=== PATIENT | female | born 1990 | race Caucasian/White ===

== ENCOUNTER 2016-12-15 11:29 | Emergency (ER) | payer OTHER ==
--- NOTE | 2016-12-15 13:30 | DIAGNOSTIC IMAGING REPORT ---
PROCEDURE: XR CHEST 2 VIEW INDICATION: SHORTNESS OF BREATH TECHNIQUE: PA and lateral views. COMPARISON: None. FINDINGS: Lungs are clear. Heart and mediastinum are normal. Thorax is normal. IMPRESSION: 1. Negative chest.
--- NOTE | 2016-12-15 13:32 | ED CLINICAL REPORT ---
Clinical Report - Physicians/Mid Levels [facility] [address] [place] [address] 12/15/2016 11:30 Patient: YASMANY RADER Time Seen: 11:58. Arrived- By private vehicle. Historian- patient. Note: . HISTORY OF PRESENT ILLNESS Chief Complaint: NASAL CONGESTION, NAUSEA, VOMITING and DIZZINESS. At its maximum, severity described as moderate. When seen in the E.D., severity described as moderate. Modifying factors- worsened by walking and food. (zofran helps - was able to keep down food yesterday for 7 hours after taking zofran - she did not take her zofran today). Not relieved by anything. This started several days ago and is still present. It was gradual in onset and has been waxing/waning. No headache or muscle aches. She has had fatigue. Similar symptoms previously: Recent medical care: The patient was seen recently at another facility in a clinic. Seen for similar symptoms. Evaluation/treatment: labs. Diagnosis: (Influenza). ( Had +flu screen at [facility]). REVIEW OF SYSTEMS Last normal menstrual period- 11 weeks and Currently : EDC: Jul 07 2017. She has had fever (recently - gone today). She has had sinus drainage, nasal congestion, nausea and vomiting. No cough, difficulty breathing, chest pain, abdominal pain or diarrhea. No black stools, bloody stools, difficulty with urination, skin rash or calf pain. No headache or blackouts. All systems otherwise negative, except as recorded above. PAST HISTORY Heart disease. PCP: Esteban; Dr Barksdale/ Teresa OB: Hank PROBLEMS: Drug Rash. Hives. Ureterolithiasis. UTI - Urinary Tract Infection. Substance Abuse. Nausea. Cough. Bronchitis. Vaginitis. Viral Disease. Medications: Tamiflu Oral. Zofran Oral. Allergies: Sulfa Antibiotics. SOCIAL HISTORY Smoker- current status unknown. History of drug use: marijuana. ADDITIONAL NOTES The nursing notes have been reviewed. PHYSICAL EXAM Vital Signs: 12/15/2016 11:42 BP: 128/90. HR: 112. RR: 24. O2 saturation: 98%. Temp: 98.7 F. Appearance: Alert. Patient in mild distress. Eyes: Eyes normal inspection. No scleral icterus or pale conjunctivae. ENT: Pharynx normal. No pharyngeal erythema or tonsillar exudate. The mucous membranes are not dry. Neck: Normal inspection. Neck supple. CVS: Tachycardia. Heart sounds normal. Pulses normal. Respiratory: No respiratory distress. Breath sounds normal. Abdomen: No visible injury. Soft and nontender. No mass. Back: Normal inspection. No CVA tenderness. Skin: Skin warm and dry. Normal skin color. Normal skin turgor. Extremities: Extremities exhibit normal ROM. No lower extremity edema. Neuro: Oriented X 3. No motor deficit. No sensory deficit. LABS, X-RAYS, AND EKG Laboratory Tests: UA-Culture if indicated: (JONATHON: 12/15/2016 12:40) ( [facility] [place] 12/15/2016 13:09) Final results Test Result Flag Units (Reference) URINE COLOR YELLOW URINE APPEARANCE CLEAR URINE GLUCOSE NEGATIVE (NEGATIVE) URINE BILIRUBIN NEGATIVE (NEGATIVE) URINE KETONE 3+ (NEGATIVE) URINE SPECIFIC GRAVITY 1.020 (1.010-1.030) URINE PH 6.5 (5.0-8.0) URINE PROTEIN TRACE (NEGATIVE) URINE UROBILINOGEN 1.0 EU/dL (0.2-1.0) URINE NITRITE NEGATIVE (NEGATIVE) URINE BLOOD NEGATIVE (NEGATIVE) URINE LEUK ESTERASE NEGATIVE (NEGATIVE) URINE RBC 0-1 rbc/hpf (0-1) URINE WBC 0-1 wbc/hpf (0-1) URINE EPITHELIAL CELLS 1-3 EPI/hpf (0-5) URINE BACTERIA FEW (1+) (NONE SEEN) URINE COMMENT CULT NOT INDICATED 3+ MUCOUSURINE CULTURES ARE SET-UP BASED ON THE FOLLOWING CRITERIA:POSITIVE NITRITEPOSITIVE LEUKOCYTE ESTERASEGREATER THAN 10 WHITE BLOOD CELLSMODERATE (2+) OR GREATER BACTERIA CBC w Diff: (JONATHON: 12/15/2016 11:45) ( [facility] [place] 12/15/2016 12:17) Final results Test Result Flag Units (Reference) WHITE BLOOD COUNT 10.0 K/uL (4.5-11.5) RED BLOOD COUNT 4.74 M/uL (4.00-5.20) HEMOGLOBIN 14.3 gm/dL (12.0-16.0) HEMATOCRIT 42.6 % (36.0-46.0) MEAN CELL VOLUME 90 fL (80-100) MEAN CORPUSCULAR HGB 30 pg (26-34) MEAN CORPUSCULAR HGB CONC 34 g/dL (31-37) RED CELL DISTRIBUTION WIDTH 12.1 % (11.6-14.8) PLATELET COUNT 272 K/uL (150-400) LYMPH % 11.5 L % (25-40) MONO % 3.3 % (3-14) GRANULOCYTE % 85.2 (53-90) PT with INR: (JONATHON: 12/15/2016 11:45) ( MsgRcvd 12/15/2016 12:18) Final results Test Result Flag Units (Reference) INR 1.0 (0.8-1.2) Low Intensity Therapy: INR 1.5-2.0 PT range 18.5-23.1Mod.Intensity Therapy: INR 2.0-3.0 PT range 23.1-31.5High Intensity Therapy: INR 2.5-3.5 PT range 27.4-35.5High Intensity Therapy 2: INR 3.0-4.0 PT range 31.5-39.3 D-DIMER QUANTITATIVE 0.52 ug/mLFEU (0.27-0.52) The primary value of this quantitative assay relates toits negative predictive value (i.e. exclusion) of pulmonaryembolism/deep vein thrombosis/DIC.Elevated levels of d-dimer may also occur with:, age, cancer, inflammation, liver disease,post-op, infection, hematoma, coronary disease, peripheralarteriopathy, bleeding disorders and thrombolytic treatment.Results should be correlated with other clinical andradiological data.Testing Methodology: Latex Immunoassay [id number]: (JONATHON: 12/15/2016 11:45) ( MsgRcvd 12/15/2016 12:49) Final results Test Result Flag Units (Reference) PROCALCITONIN <0.5 ng/mL (0-0.5) PCT Concentration: Interpretation : Risk/option for action PCT <=0.5 ng/mL : Systemic : Low risk forinfection(sepsis): progression to severeis not likely. : systemic infection.Local bacterial : CAUTION-PCT levelsinfection is : below 0.5 ng/mL do notpossible. : exclude an infection,because localizedinfections (withoutsystemic signs) may beassociated with suchlow levels. If PCT ismeasured very earlyafter a bacterialchallenge (usually <6hours), these valuesmay still be low. Inthis case PCT shouldbe re-assessed 6-24hours later. PCT >0.5 and : Systemic infection: Moderate risk for<= 2 ng/mL : (sepsis) is : progression to severepossible, but : systemic infection.other conditions : The patient should beare known to : closely monitoredelevate PCT. : both clinically andby re-assessing PCTwithin 6-24 hours. PCT > 2 ng/mL : Systemic infection: High risk for(sepsis) is likely: progression to severeunless other : systemic infection.causes are known. : PCT >= 10 ng/mL : Important systemic: High likelihood ofinflammatory : severe sepsis orresponse, almost : septic shock.exclusively due to:severe bacterial :sepsis or septic :shock. : BNP: (JONATHON: 12/15/2016 11:45) ( ArgRcvd 12/15/2016 12:39) Final results Test Result Flag Units (Reference) B-TYPE NATRIURETIC PEPTIDE 15.6 pg/ml (5-100) CHEM 13 PANEL: (JONATHON: 12/15/2016 11:45) ( MsgRcvd 12/15/2016 12:29) IP Test Result Flag Units (Reference) GLUCOSE 91 mg/dL (70-110) BUN 9 mg/dL (7-18) CREATININE 0.6 mg/dL (0.6-1.3) Estimated GFR >60 mL/min Estimated GFR- >60 mL/min Note: Persistent reduction over 3 months in eGFR<60 mL/min/1.73 m2 defines CKD. Patients with eGFR values>=60 mL/min/1.73 m2 may also have CKD if evidence ofpersistent proteinuria. Additional information may be foundat www.kidney.org. SODIUM 137 mmol/L (136-145) POTASSIUM 3.6 mmol/L (3.5-5.1) CHLORIDE 101 mmol/L (98-107) CARBON DIOXIDE 22 mmol/L (21-32) CALCIUM 9.2 mg/dL (8.5-10.1) TOTAL PROTEIN 8.0 g/dL (6.4-8.2) ALBUMIN 3.7 g/dL (3.3-5.0) BILIRUBIN, TOTAL 0.3 mg/dL (0.0-1.0) ALKALINE PHOSPHATASE 96 U/L (46-116) AST (SGOT) 19 U/L (15-37) ALT (SGPT) 29 U/L (12-78) MAGNESIUM 1.8 mg/dL (1.8-2.4) AMYLASE 50 U/L (25-115) CPK 29 U/L (24-260) TROPONIN I <0.05 ng/mL (0.00-1.5) TROPONIN REFERENCE RANGE:<0.1 NEGATIVE0.1-1.5 INDETERMINANT>1.5 POSITIVE . Pulse Oximetry: 12/15/2016 11:42 O2 saturation: 98%. (FIO2 - room air). Interpretation: normal. PROGRESS AND PROCEDURES Course of Care: Normal Saline 1 liter IVPB given. Zofran 4 mg IVP given. Reglan 10 mg IVP given. Patient is stable. Physical exam findings are improved. Symptoms much better. 12/15/2016 13:48 BP: 122/64. HR: 93. RR: 16. O2 saturation: 99%. Patient/family counseled. Old ED records reviewed. Disposition: Discharged. Condition: stable and improved. CLINICAL IMPRESSION Second trimester . Influenza with upper respiratory infection and bronchitis. INSTRUCTIONS Do not work for three days. Avoid alcohol and NSAIDS. Examples of NSAIDS include aspirin, ibuprofen (Advil) and naproxen (Aleve). Avoid fatty, fried/greasy, lactose-containing (such as milk, cheese and ice cream), salty and spicy foods. Drink plenty of fluids. Warnings: Further evaluation is necessary in order to recheck abnormal lab, obtain test results, conduct further tests and assess the possibility of serious illness. It is very important to follow up with a physician. GENERAL WARNINGS: Return or contact your physician immediately if your condition worsens or changes unexpectedly, if not improving as expected, or if other problems arise. Your Current Medications: CONTINUE TAKING THE FOLLOWING MEDICATIONS: Tamiflu Oral. Zofran Oral. Prescription Medications: Zofran (orally disintegrating tablets) 4 mg: take 1-2 orally every 8 hours as needed for nausea and vomiting. Dispense fifteen (15). No refill. Substitution is permissible. Follow-up with: Lilian Mckinney DO, child care associate, , [facility], [address] [place] [address], [phone] Follow up today. Reason for referral: AN APPOINTMENT HAS BEEN MADE FOR YOU FOR 3:45 PM TODAY. (Electronically signed by Bar Maza DO 12/16/2016 12:30)
--- NOTE | 2016-12-15 13:32 | ED NURSING NOTES ---
Clinical Report - Nurses [facility] [address] [place] [address] 12/15/2016 11:30 Patient: YASMANY RADER TRIAGE Triage time 1135. Acuity: LEVEL 3. Chief Complaint: "FLU". Alert. No acute distress. --11:46 Roseann Malagon 11:42 12/15/16. BP: 128/90. HR: 112. RR: 24. O2 saturation: 98%. Temp: 98.7 F. Pain level now 0/10. --11:46 Roseann Malagon. Weight: 62.5 kg. Height/Length: 61 inches. BMI: 26. --11:42 Roseann Malagon. Medications Zofran Oral. --11:43 Roseann Malagon. Allergies Sulfa Antibiotics. --11:43 Roseann Malagon. History Arrived by private vehicle. Historian: patient. Accompanied by friend. ( Pt dx with flu, + swab, sts she cannot keep down the tamiflu and still has vomiting and weakness, pt is not aggressively taking her rx for nausea meds x 2). PAST MEDICAL HX: Currently : EDC: Jul 07 2017. SOCIAL HX: Former smoker, end date 09/2016. History of drug use: marijuana. --11:46 Roseann Malagon. PROBLEMS: Drug Rash. Hives. Ureterolithiasis. UTI - Urinary Tract Infection. Substance Abuse. Nausea. Cough. Bronchitis. Vaginitis. Viral Disease. --11:44 Roseann Malagon. Interventions ID band on patient. To treatment room. --11:46 Roseann Malagon. PHYSICAL ASSESSMENT Ambulatory to room. Patient gowned. GENERAL / NEURO / PSYCH: Alert. Oriented X 4. Appears anxious. HEENT: Pupils equal, round and reactive to light. Mucous membranes are pink. RESPIRATORY: Respirations not labored. Chest nontender. Breath sounds within normal limits. CVS: Normal sinus rhythm noted. Capillary refill less than 2 seconds. Pulses within normal limits. GI / : The patient has had nausea. Emesis noted. Abdomen soft and nontender and normal bowel sounds. SKIN: Skin is warm and dry. --11:46 Roseann Malagon. NURSING PROGRESS NOTES 11:43 12/15/2016 Site #1 started via IV in the right antecubital space with an 18g angiocath, with aseptic technique and good blood return; one attempt. Blood drawn: rainbow set. Labeled in the presence of the patient and sent to the lab. Saline lock flushed with 10 mL saline. --11:48 Valeria Billingsley R.N. 11:48 12/15/16. The plan of care for this patient has been created. Patient gowned. Head of bed elevated. Call light placed in reach. Bed placed in lowest position. Brakes of bed on. --11:49 Valeria Billingsley R.N. Patient returned from radiology by wheelchair with tech. --12:32 Valeria Billingsley R.N. 12:39 12/15/2016 Started bag #1 1000 mL IV Fluids IV NS (Saline); bolus of 1000 mL wide open via site #1 --12:39 Roseann Malagon 12:39 12/15/2016 Zofran (Ondansetron HCl) IVP 4 mg given over 1 minute(s) via site #1. Allergies verified and confirmed 5 rights. IV patency established. IV site checked: no pain, redness, or swelling. IV flushed thoroughly pre- and post-medication administration. IVP given by RN. --12:39 Roseann Malagon 12:40 12/15/2016 Reglan (Metoclopramide HCl) IVP 10 mg given over 2 minute(s) via site #1. Allergies verified and confirmed 5 rights. IV patency established. IV site checked: no pain, redness, or swelling. IV flushed thoroughly pre- and post-medication administration. IVP given by RN. --12:40 Roseann Malagon Reassessment after medication administered. She is calm and resting quietly and has had no adverse reaction. Overall patient status is improved- she states feels better. --13:47 Roseann Malagon 13:47 12/15/2016 Site #1 removed upon discharge. Pressure dressing applied. --13:47 Roseann Malagon 13:47 12/15/2016 IV Fluids IV NS Discontinued: bag #1 infused upon discharge. Total amount infused: 1000 mL. --13:47 Roseann Malagon. DISPOSITION / DISCHARGE Departure time: 1345. Condition at departure: improved and stable. No learning barriers present. Discharge instructions provided and reviewed with the patient and spouse. Reviewed medication(s). Patient and spouse verbalized understanding. Written instructions provided in Taiwanese. The patient was discharged by the physician. She was discharged home and accompanied by spouse. She left the Emergency Department ambulatory and via private vehicle. Spouse driving. --13:48 Roseann Malagon 13:48 12/15/16. BP: 122/64. HR: 93. RR: 16. O2 saturation: 99%. Pain level now 0/10. --13:48 Roseann Malagon. Locked/Released at 12/15/2016 13:49 by Roseann Malagon,
--- NOTE | 2016-12-15 13:32 | ED CLINICAL REPORT ---
Clinical Report - Physicians/Mid Levels [facility] [address] [place] [address] 12/15/2016 11:30 Patient: YASMANY RADER Time Seen: 11:58. Arrived- By private vehicle. Historian- patient. Note: . HISTORY OF PRESENT ILLNESS Chief Complaint: NASAL CONGESTION, NAUSEA, VOMITING and DIZZINESS. At its maximum, severity described as moderate. When seen in the E.D., severity described as moderate. Modifying factors- worsened by walking and food. (zofran helps - was able to keep down food yesterday for 7 hours after taking zofran - she did not take her zofran today). Not relieved by anything. This started several days ago and is still present. It was gradual in onset and has been waxing/waning. No headache or muscle aches. She has had fatigue. Similar symptoms previously: Recent medical care: The patient was seen recently at another facility in a clinic. Seen for similar symptoms. Evaluation/treatment: labs. Diagnosis: (Influenza). ( Had +flu screen at [facility]). REVIEW OF SYSTEMS Last normal menstrual period- 11 weeks and Currently : EDC: Jul 07 2017. She has had fever (recently - gone today). She has had sinus drainage, nasal congestion, nausea and vomiting. No cough, difficulty breathing, chest pain, abdominal pain or diarrhea. No black stools, bloody stools, difficulty with urination, skin rash or calf pain. No headache or blackouts. All systems otherwise negative, except as recorded above. PAST HISTORY Heart disease. PCP: Esteban; Dr Barksdale/ Teresa OB: Hank PROBLEMS: Drug Rash. Hives. Ureterolithiasis. UTI - Urinary Tract Infection. Substance Abuse. Nausea. Cough. Bronchitis. Vaginitis. Viral Disease. Medications: Tamiflu Oral. Zofran Oral. Allergies: Sulfa Antibiotics. SOCIAL HISTORY Smoker- current status unknown. History of drug use: marijuana. ADDITIONAL NOTES The nursing notes have been reviewed. PHYSICAL EXAM Vital Signs: 12/15/2016 11:42 BP: 128/90. HR: 112. RR: 24. O2 saturation: 98%. Temp: 98.7 F. Appearance: Alert. Patient in mild distress. Eyes: Eyes normal inspection. No scleral icterus or pale conjunctivae. ENT: Pharynx normal. No pharyngeal erythema or tonsillar exudate. The mucous membranes are not dry. Neck: Normal inspection. Neck supple. CVS: Tachycardia. Heart sounds normal. Pulses normal. Respiratory: No respiratory distress. Breath sounds normal. Abdomen: No visible injury. Soft and nontender. No mass. Back: Normal inspection. No CVA tenderness. Skin: Skin warm and dry. Normal skin color. Normal skin turgor. Extremities: Extremities exhibit normal ROM. No lower extremity edema. Neuro: Oriented X 3. No motor deficit. No sensory deficit. LABS, X-RAYS, AND EKG Laboratory Tests: UA-Culture if indicated: (JONATHON: 12/15/2016 12:40) ( [facility] [place] 12/15/[place] 13:09) Final results Test Result Flag Units (Reference) URINE COLOR YELLOW URINE APPEARANCE CLEAR URINE GLUCOSE NEGATIVE (NEGATIVE) URINE BILIRUBIN NEGATIVE (NEGATIVE) URINE KETONE 3+ (NEGATIVE) URINE SPECIFIC GRAVITY 1.020 (1.010-1.030) URINE PH 6.5 (5.0-8.0) URINE PROTEIN TRACE (NEGATIVE) URINE UROBILINOGEN 1.0 EU/dL (0.2-1.0) URINE NITRITE NEGATIVE (NEGATIVE) URINE BLOOD NEGATIVE (NEGATIVE) URINE LEUK ESTERASE NEGATIVE (NEGATIVE) URINE RBC 0-1 rbc/hpf (0-1) URINE WBC 0-1 wbc/hpf (0-1) URINE EPITHELIAL CELLS 1-3 EPI/hpf (0-5) URINE BACTERIA FEW (1+) (NONE SEEN) URINE COMMENT CULT NOT INDICATED 3+ MUCOUSURINE CULTURES ARE SET-UP BASED ON THE FOLLOWING CRITERIA:POSITIVE NITRITEPOSITIVE LEUKOCYTE ESTERASEGREATER THAN 10 WHITE BLOOD CELLSMODERATE (2+) OR GREATER BACTERIA CBC w Diff: (JONATHON: 12/15/2016 11:45) ( [facility] [place] 12/15/2016 12:17) Final results Test Result Flag Units (Reference) WHITE BLOOD COUNT 10.0 K/uL (4.5-11.5) RED BLOOD COUNT 4.74 M/uL (4.00-5.20) HEMOGLOBIN 14.3 gm/dL (12.0-16.0) HEMATOCRIT 42.6 % (36.0-46.0) MEAN CELL VOLUME 90 fL (80-100) MEAN CORPUSCULAR HGB 30 pg (26-34) MEAN CORPUSCULAR HGB CONC 34 g/dL (31-37) RED CELL DISTRIBUTION WIDTH 12.1 % (11.6-14.8) PLATELET COUNT 272 K/uL (150-400) LYMPH % 11.5 L % (25-40) MONO % 3.3 % (3-14) GRANULOCYTE % 85.2 (53-90) PT with INR: (JONATHON: 12/15/2016 11:45) ( MsgRcvd 12/15/2016 12:18) Final results Test Result Flag Units (Reference) INR 1.0 (0.8-1.2) Low Intensity Therapy: INR 1.5-2.0 PT range 18.5-23.1Mod.Intensity Therapy: INR 2.0-3.0 PT range 23.1-31.5High Intensity Therapy: INR 2.5-3.5 PT range 27.4-35.5High Intensity Therapy 2: INR 3.0-4.0 PT range 31.5-39.3 D-DIMER QUANTITATIVE 0.52 ug/mLFEU (0.27-0.52) The primary value of this quantitative assay relates toits negative predictive value (i.e. exclusion) of pulmonaryembolism/deep vein thrombosis/DIC.Elevated levels of d-dimer may also occur with:, age, cancer, inflammation, liver disease,post-op, infection, hematoma, coronary disease, peripheralarteriopathy, bleeding disorders and thrombolytic treatment.Results should be correlated with other clinical andradiological data.Testing Methodology: Latex Immunoassay [id number]: (JONATHON: 12/15/2016 11:45) ( MsgRcvd 12/15/2016 12:49) Final results Test Result Flag Units (Reference) PROCALCITONIN <0.5 ng/mL (0-0.5) PCT Concentration: Interpretation : Risk/option for action PCT <=0.5 ng/mL : Systemic : Low risk forinfection(sepsis): progression to severeis not likely. : systemic infection.Local bacterial : CAUTION-PCT levelsinfection is : below 0.5 ng/mL do notpossible. : exclude an infection,because localizedinfections (withoutsystemic signs) may beassociated with suchlow levels. If PCT ismeasured very earlyafter a bacterialchallenge (usually <6hours), these valuesmay still be low. Inthis case PCT shouldbe re-assessed 6-24hours later. PCT >0.5 and : Systemic infection: Moderate risk for<= 2 ng/mL : (sepsis) is : progression to severepossible, but : systemic infection.other conditions : The patient should beare known to : closely monitoredelevate PCT. : both clinically andby re-assessing PCTwithin 6-24 hours. PCT > 2 ng/mL : Systemic infection: High risk for(sepsis) is likely: progression to severeunless other : systemic infection.causes are known. : PCT >= 10 ng/mL : Important systemic: High likelihood ofinflammatory : severe sepsis orresponse, almost : septic shock.exclusively due to:severe bacterial :sepsis or septic :shock. : BNP: (JONATHON: 12/15/2016 11:45) ( AlgRcvd 12/15/2016 12:39) Final results Test Result Flag Units (Reference) B-TYPE NATRIURETIC PEPTIDE 15.6 pg/ml (5-100) CHEM 13 PANEL: (JONATHON: 12/15/2016 11:45) ( MsgRcvd 12/15/2016 12:29) IP Test Result Flag Units (Reference) GLUCOSE 91 mg/dL (70-110) BUN 9 mg/dL (7-18) CREATININE 0.6 mg/dL (0.6-1.3) Estimated GFR >60 mL/min Estimated GFR- >60 mL/min Note: Persistent reduction over 3 months in eGFR<60 mL/min/1.73 m2 defines CKD. Patients with eGFR values>=60 mL/min/1.73 m2 may also have CKD if evidence ofpersistent proteinuria. Additional information may be foundat www.kidney.org. SODIUM 137 mmol/L (136-145) POTASSIUM 3.6 mmol/L (3.5-5.1) CHLORIDE 101 mmol/L (98-107) CARBON DIOXIDE 22 mmol/L (21-32) CALCIUM 9.2 mg/dL (8.5-10.1) TOTAL PROTEIN 8.0 g/dL (6.4-8.2) ALBUMIN 3.7 g/dL (3.3-5.0) BILIRUBIN, TOTAL 0.3 mg/dL (0.0-1.0) ALKALINE PHOSPHATASE 96 U/L (46-116) AST (SGOT) 19 U/L (15-37) ALT (SGPT) 29 U/L (12-78) MAGNESIUM 1.8 mg/dL (1.8-2.4) AMYLASE 50 U/L (25-115) CPK 29 U/L (24-260) TROPONIN I <0.05 ng/mL (0.00-1.5) TROPONIN REFERENCE RANGE:<0.1 NEGATIVE0.1-1.5 INDETERMINANT>1.5 POSITIVE . Pulse Oximetry: 12/15/2016 11:42 O2 saturation: 98%. (FIO2 - room air). Interpretation: normal. PROGRESS AND PROCEDURES Course of Care: Normal Saline 1 liter IVPB given. Zofran 4 mg IVP given. Reglan 10 mg IVP given. Patient is stable. Physical exam findings are improved. Symptoms much better. 12/15/2016 13:48 BP: 122/64. HR: 93. RR: 16. O2 saturation: 99%. Patient/family counseled. Old ED records reviewed. Disposition: Discharged. Condition: stable and improved. CLINICAL IMPRESSION Second trimester . Influenza with upper respiratory infection and bronchitis. INSTRUCTIONS Do not work for three days. Avoid alcohol and NSAIDS. Examples of NSAIDS include aspirin, ibuprofen (Advil) and naproxen (Aleve). Avoid fatty, fried/greasy, lactose-containing (such as milk, cheese and ice cream), salty and spicy foods. Drink plenty of fluids. Warnings: Further evaluation is necessary in order to recheck abnormal lab, obtain test results, conduct further tests and assess the possibility of serious illness. It is very important to follow up with a physician. GENERAL WARNINGS: Return or contact your physician immediately if your condition worsens or changes unexpectedly, if not improving as expected, or if other problems arise. Your Current Medications: CONTINUE TAKING THE FOLLOWING MEDICATIONS: Tamiflu Oral. Zofran Oral. Prescription Medications: Zofran (orally disintegrating tablets) 4 mg: take 1-2 orally every 8 hours as needed for nausea and vomiting. Dispense fifteen (15). No refill. Substitution is permissible. Follow-up with: Lilian Mckinney DO, mink farmer, , [facility], [address] [place] [address], [phone] Follow up today. Reason for referral: AN APPOINTMENT HAS BEEN MADE FOR YOU FOR 3:45 PM TODAY. (Electronically signed by Bar Maza DO 12/16/2016 12:30)
--- NOTE | 2016-12-15 13:33 | ED ORDER SUMMARY ---
..... 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) (11:59 12/15/2016 PHutchinson DO) (12[facility] UA-Culture if indicated Urgent (12:12/15/2016 PHchinson DO) (Ack 12:06 LTapper) (12:09 ) Cardiac Panel Stat (:12/15/2016 PHson DO) (Ack 12:06 LTapper) (12:09 ) BNP Urgent (:12/15/2016 PHutchinson DO) (Ack 12:06 LTapper) (12:09 ) D-Dimer Urgent (12:12/15/2016 PHson DO) (Ack 12:06 LTapper) (12:09 EB) Amylase Urgent (12:12/15/2016 PHutchinson DO) (Ack 12:06 LTapper) (12:09 ) Urine Drug Screen Urgent (12:12/15/2016 PHson DO) (Ack 12:06 LTapper) (12:09 EB) TSH Urgent (12:12/15/2016 PHutchinson DO) (Ack 12:06 LTapper) (12:09 ) PT with INR Urgent (:12/15/2016 PHchinson DO) (Ack 12:06 LTapper) (12:09 ) Oxygen (2 L/min) (NC) (:00 12/15/2016 PHutchinson DO) (12:08 EB) Pulse oximeter (:12/15/2016 PHutchinson DO) (12:09 EBon) EKG - ER Stat (12:12/15/2016 PHutson DO) (Ack 12:06 LTapper) (12:15 LTapper) Vitals (12:00 12/15/2016 PHutchinson DO) (12:06 LTapper) Chest 2V (PLEASE SHIELD) Urgent (12:09 12/15/2016 PHutchinson DO) (Ack 12:15 LTapper) PCT (Procalcitonin) Urgent (12:10 12/15/2016 PHctchinson DO) (Ack 12:15 LTapper) MEDICATION ORDERS: IV FLUIDS: IV NS : initial bolus 1000 mL (1000 mL/hr), then 1000 mL/hr for X2 (NOW) (11:59 12/15/2016 [facility]) (12:39 [facility]) Zofran IV 4 mg (NOW) (12:00 12/15/2016 [facility] (12:39 [facility]) Reglan IV 10 mg (NOW) (12:00 12/15/2016 [facility]) (12:40 [facility]) ORDER SHEET NOTES: [Electronically signed by Roseann Malagon (13:49 12/15/2016)] [Electronically signed by Bar Maza DO (12:30 12/16/2016)] [Electronically locked/signed by Roseann Malagon (13:49 12/15/2016)]
--- NOTE | 2016-12-15 13:33 | ED ORDER SUMMARY ---
..... 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) (11:59 12/15/2016 PHutchinson DO) (12[facility] UA-Culture if indicated Urgent (12:12/15/2016 PHchinson DO) (Ack 12:06 LTapper) (12:09 ) Cardiac Panel Stat (:12/15/2016 PHson DO) (Ack 12:06 LTapper) (12:09 ) BNP Urgent (:12/15/2016 PHutchinson DO) (Ack 12:06 LTapper) (12:09 ) D-Dimer Urgent (12:12/15/2016 PHson DO) (Ack 12:06 LTapper) (12:09 EB) Amylase Urgent (12:12/15/2016 PHutchinson DO) (Ack 12:06 LTapper) (12:09 ) Urine Drug Screen Urgent (12:12/15/2016 PHson DO) (Ack 12:06 LTapper) (12:09 EB) TSH Urgent (12:12/15/2016 PHutchinson DO) (Ack 12:06 LTapper) (12:09 ) PT with INR Urgent (:12/15/2016 PHchinson DO) (Ack 12:06 LTapper) (12:09 ) Oxygen (2 L/min) (NC) (:00 12/15/2016 PHutchinson DO) (12:08 EB) Pulse oximeter (:12/15/2016 PHutchinson DO) (12:09 EBon) EKG - ER Stat (12:12/15/2016 PHutson DO) (Ack 12:06 LTapper) (12:15 LTapper) Vitals (12:00 12/15/2016 PHutchinson DO) (12:06 LTapper) Chest 2V (PLEASE SHIELD) Urgent (12:09 12/15/2016 PHutchinson DO) (Ack 12:15 LTapper) PCT (Procalcitonin) Urgent (12:10 12/15/2016 PHwychinson DO) (Ack 12:15 LTapper) MEDICATION ORDERS: IV FLUIDS: IV NS : initial bolus 1000 mL (1000 mL/hr), then 1000 mL/hr for X2 (NOW) (11:59 12/15/2016 [facility]) (12:39 [facility]) Zofran IV 4 mg (NOW) (12:00 12/15/2016 [facility] (12:39 [facility]) Reglan IV 10 mg (NOW) (12:00 12/15/2016 [facility]) (12:40 [facility]) ORDER SHEET NOTES: [Electronically signed by Roseann Malagon (13:49 12/15/2016)] [Electronically signed by Bar Maza DO (12:30 12/16/2016)] [Electronically locked/signed by Roseann Malagon (13:49 12/15/2016)]
--- NOTE | 2016-12-16 12:30 | ED DISCHARGE INSTRUCTIONS ---
Patient: YASMANY RADER General Instructions [facility] VisitID: [id number] [place] [id number] 26y, F Registration Date/Time: 12/15/2016 Second trimester . Influenza with upper respiratory infection and bronchitis. INSTRUCTIONS Do not work for three days. Avoid alcohol and NSAIDS. Examples of NSAIDS include aspirin, ibuprofen (Advil) and naproxen (Aleve). Avoid fatty, fried/greasy, lactose-containing (such as milk, cheese and ice cream), salty and spicy foods. Drink plenty of fluids. Warnings: Further evaluation is necessary in order to recheck abnormal lab, obtain test results, conduct further tests and assess the possibility of serious illness. It is very important to follow up with a physician. GENERAL WARNINGS: Return or contact your physician immediately if your condition worsens or changes unexpectedly, if not improving as expected, or if other problems arise. Your Current Medications: CONTINUE TAKING THE FOLLOWING MEDICATIONS: Tamiflu Oral. Zofran Oral. Prescription Medications: Zofran (orally disintegrating tablets) 4 mg: take 1-2 orally every 8 hours as needed for nausea and vomiting. Dispense fifteen (15). No refill. Substitution is permissible. Follow-up with: Lilian Mckinney DO, certified nuclear medicine technologist, , [facility], [address] [place] [address] Follow up today. Reason for referral: AN APPOINTMENT HAS BEEN MADE FOR YOU FOR 3:45 PM TODAY. ADDITIONAL INFORMATION Your exam today shows that you are . During , it is normal to develop tender swollen breasts, frequent urination and mild vaginal discharge. During the first three months, nausea is common. Guidelines For A Healthy : To ensure that your baby is born healthy there are certain things that you can do: When you feel tired, you should REST. This is especially true in the later months of . Your body needs more FLUIDS than you may be used to: You should drink 8-10 glasses of juice, milk or water. Eat well-balanced MEALS at regular intervals to supply your body with enough protein. You can expect a total weight gain of about 30 pounds during the . Do not try to diet or lose weight while you are . Because of the extra nutritional needs during , take one VITAMIN daily. Do not take any other MEDICINE during your (prescribed or [id number]) unless your doctor specifically recommends this. Many drugs can have harmful effects on the growing baby. If NAUSEA or VOMITING become a problem, avoid greasy and fried foods. Eat several smaller meals throughout the day rather than three large meals. If you SMOKE, you must stop. The nicotine you breathe in goes right to the baby. Stay away from ALCOHOL, even in moderate amounts. Daily drinking will harm your baby and can cause permanent brain damage. RECREATIONAL DRUGS are harmful, especially cocaine, crack, and heroin. Marijuana should also be avoided. If you were using recreational drugs or prescribed medicine when you found out that you were , talk to your doctor about possible effects on the fetus. Follow Up: Call to arrange for care. This can be provided by your family doctor, an traffic ii manager ( specialist) or a primary care clinic. Get Prompt Medical Attention if any of the following occur: Vaginal bleeding Moderate or severe abdominal or back pain Excessive vomiting, unable to keep any fluids down for six hours Burning with urination Headache, dizziness or rapid weight gain Influenza (Adult) Influenza, also called the flu, is a viral illness that affects the air passages of the lungs. It differs from the common cold. It is highly contagious. It may be spread through the air by coughing and sneezing or by direct contact (touching the sick person and then touching your own eyes, nose or mouth). Illness starts 1-3 days after exposure and lasts for 1-2 weeks. Antibiotics are usually not needed unless a complication appears (ear or sinus infection or pneumonia). Symptoms may be mild or severe and can include extreme tiredness (wanting to stay in bed all day), chills, fevers, muscle aching, soreness with eye movement, headache, and a dry, hacking cough. Home Care: Avoid exposure to cigarette smoke (yours or others). Tylenol or ibuprofen (Advil) will help fever, muscle aching, and headache. To avoid risk of liver injury, aspirin should not be used in children and teenagers under 18 with this illness. Nausea and loss of appetite are common. A light diet is recommended. Avoid dehydration by drinking 6-8 glasses of fluids per day (water, sport drinks like Gatorade, soft drinks without caffeine, juices, tea, soup, etc.). Extra fluids will also help loosen secretions in the nose and lungs. Skvd-hqu-vrjyiud cold medicines will not shorten the duration of the illness but may be helpful for the following symptoms: cough (Robitussin DM); sore throat (Chloraseptic lozenges or spray); nasal and sinus congestion (Actifed or Sudafed). [NOTE: Do not use decongestants if you have high blood pressure.] Stay home until your fever has been gone for at least 24 hours (without the use of fever-reducing medications such as ibuprofen). Follow Up with your doctor or as directed by our staff if you are not improving over the next week. Note: If you are age 65 or older, or if you have chronic asthma or COPD, we recommend a pneumococcal vaccinationevery five years. All adults shouldreceive a yearly influenza vaccination every . Ask your doctor about this. Get Prompt Medical Attention if any of the following occur: Cough with lots of colored sputum (mucus) or blood in your sputum Chest pain, shortness of breath, wheezing, or difficulty breathing Severe headache, face, neck or ear pain New rash Fever of 100.4F (38C) oral or higher, not better with fever medication Confusion, behavior change or seizure Severe weakness or dizziness Clear Liquid Diet Clear liquids are any liquid that you can see through as well as those that are very easy to digest. This is used while the body is recovering from irritation or infection of the stomach or intestinal tract. It may also be used before special procedures or surgery. This diet is to be used no more than three days. You may include the following items. Adults Adults should drink a total of 23 quarts of liquid per day. It may be easier to drink small frequent servings rather than a few large ones. Liquids can include: Fruit juices.Strained orange juice or lemonade (no pulp), apple, grape and cranberry juice, clear fruit drinks, sports drinks Beverages.Sport drinks, sodas, mineral water (plain or flavored), tea, black coffee, liquid gelatin (add twice the recommended amount of water) Soups.Clear broth, consomm, bouillon Desserts.Plain gelatin, popsicles, fruit juice bars Children Over 2 years old The following liquids are acceptable for children over age 2: Fruit juices.Strained orange juice or lemonade (no pulp), apple, grape and cranberry juice, clear fruit drinks Beverages. Sports drinks, sodas, mineral water (plain or flavored), tea, liquid gelatin (add twice the recommended amount of water) Soups. Clear broth, consomm, bouillon Desserts. Plain gelatin, popsicles, fruit juice bars Children under 2 years old Oral rehydration fluids such are available at drug stores and most grocery stores without a prescription. Ondansetron Oral disintegrating tablet What is this medicine? ONDANSETRON (on FARHAT se isidra) is used to treat nausea and vomiting caused by chemotherapy. It is also used to prevent or treat nausea and vomiting after surgery. How should I use this medicine? These tablets are made to dissolve in the mouth. Do not try to push the tablet through the foil backing. With dry hands, peel away the foil backing and gently remove the tablet. Place the tablet in the mouth and allow it to dissolve, then swallow. While you may take these tablets with water, it is not necessary to do so. Talk to your salsa dance instructor regarding the use of this medicine in children. Special care may be needed. What side effects may I notice from receiving this medicine? Side effects that you should report to your doctor or health career technical supervisor as soon as possible: allergic reactions like skin rash, itching or hives, swelling of the face, lips, or tongue breathing problems dizziness fast or irregular heartbeat feeling faint or lightheaded, falls fever and chills swelling of the hands and feet tightness in the chest Side effects that usually do not require medical attention (report to your doctor or health career technical supervisor if they continue or are bothersome): constipation or diarrhea headache What may interact with this medicine? Do not take this medicine with any of the following medications: -apomorphine -cisapride -dofetilide -dronedarone -pimozide -thioridazine -ziprasidone This medicine may also interact with the following medications: -carbamazepine -phenytoin -rifampicin -tramadol -other medicines that prolong the QT interval (cause an abnormal heart rhythm) What if I miss a dose? If you miss a dose, take it as soon as you can. If it is almost time for your next dose, take only that dose. Do not take double or extra doses. Where should I keep my medicine? Keep out of the reach of children. Store between 2 and 30 degrees C (36 and 86 degrees F). Throw away any unused medicine after the expiration date. What should I tell my health care provider before I take this medicine? They need to know if you have any of these conditions: heart disease history of irregular heartbeat liver disease low levels of magnesium or potassium in the blood an unusual or allergic reaction to ondansetron, granisetron, other medicines, foods, dyes, or preservatives or trying to get breast-feeding What should I watch for while using this medicine? Check with your doctor or health career technical supervisor as soon as you can if you have any sign of an allergic reaction. You have been given the following additional information: , New Dx Influenza (Adult) Diet, Clear Liquid Ondansetron Oral disintegrating tablet Do not work for three days. (Electronically signed by Bar Maza DO 12/16/2016 12:30)
--- NOTE | 2016-12-16 12:30 | ED DISCHARGE INSTRUCTIONS ---
Patient: YASMANY RADER General Instructions [facility] VisitID: [id number] [place] [id number] 26y, F Registration Date/Time: 12/15/2016 Second trimester . Influenza with upper respiratory infection and bronchitis. INSTRUCTIONS Do not work for three days. Avoid alcohol and NSAIDS. Examples of NSAIDS include aspirin, ibuprofen (Advil) and naproxen (Aleve). Avoid fatty, fried/greasy, lactose-containing (such as milk, cheese and ice cream), salty and spicy foods. Drink plenty of fluids. Warnings: Further evaluation is necessary in order to recheck abnormal lab, obtain test results, conduct further tests and assess the possibility of serious illness. It is very important to follow up with a physician. GENERAL WARNINGS: Return or contact your physician immediately if your condition worsens or changes unexpectedly, if not improving as expected, or if other problems arise. Your Current Medications: CONTINUE TAKING THE FOLLOWING MEDICATIONS: Tamiflu Oral. Zofran Oral. Prescription Medications: Zofran (orally disintegrating tablets) 4 mg: take 1-2 orally every 8 hours as needed for nausea and vomiting. Dispense fifteen (15). No refill. Substitution is permissible. Follow-up with: Lilian Mckinney DO, table worker packager, , [facility], [address] [place] [address] Follow up today. Reason for referral: AN APPOINTMENT HAS BEEN MADE FOR YOU FOR 3:45 PM TODAY. ADDITIONAL INFORMATION Your exam today shows that you are . During , it is normal to develop tender swollen breasts, frequent urination and mild vaginal discharge. During the first three months, nausea is common. Guidelines For A Healthy : To ensure that your baby is born healthy there are certain things that you can do: When you feel tired, you should REST. This is especially true in the later months of . Your body needs more FLUIDS than you may be used to: You should drink 8-10 glasses of juice, milk or water. Eat well-balanced MEALS at regular intervals to supply your body with enough protein. You can expect a total weight gain of about 30 pounds during the . Do not try to diet or lose weight while you are . Because of the extra nutritional needs during , take one VITAMIN daily. Do not take any other MEDICINE during your (prescribed or [id number]) unless your doctor specifically recommends this. Many drugs can have harmful effects on the growing baby. If NAUSEA or VOMITING become a problem, avoid greasy and fried foods. Eat several smaller meals throughout the day rather than three large meals. If you SMOKE, you must stop. The nicotine you breathe in goes right to the baby. Stay away from ALCOHOL, even in moderate amounts. Daily drinking will harm your baby and can cause permanent brain damage. RECREATIONAL DRUGS are harmful, especially cocaine, crack, and heroin. Marijuana should also be avoided. If you were using recreational drugs or prescribed medicine when you found out that you were , talk to your doctor about possible effects on the fetus. Follow Up: Call to arrange for care. This can be provided by your family doctor, an diagrammer ( specialist) or a primary care clinic. Get Prompt Medical Attention if any of the following occur: Vaginal bleeding Moderate or severe abdominal or back pain Excessive vomiting, unable to keep any fluids down for six hours Burning with urination Headache, dizziness or rapid weight gain Influenza (Adult) Influenza, also called the flu, is a viral illness that affects the air passages of the lungs. It differs from the common cold. It is highly contagious. It may be spread through the air by coughing and sneezing or by direct contact (touching the sick person and then touching your own eyes, nose or mouth). Illness starts 1-3 days after exposure and lasts for 1-2 weeks. Antibiotics are usually not needed unless a complication appears (ear or sinus infection or pneumonia). Symptoms may be mild or severe and can include extreme tiredness (wanting to stay in bed all day), chills, fevers, muscle aching, soreness with eye movement, headache, and a dry, hacking cough. Home Care: Avoid exposure to cigarette smoke (yours or others). Tylenol or ibuprofen (Advil) will help fever, muscle aching, and headache. To avoid risk of liver injury, aspirin should not be used in children and teenagers under 18 with this illness. Nausea and loss of appetite are common. A light diet is recommended. Avoid dehydration by drinking 6-8 glasses of fluids per day (water, sport drinks like Gatorade, soft drinks without caffeine, juices, tea, soup, etc.). Extra fluids will also help loosen secretions in the nose and lungs. Qnag-eyl-pdgkrzs cold medicines will not shorten the duration of the illness but may be helpful for the following symptoms: cough (Robitussin DM); sore throat (Chloraseptic lozenges or spray); nasal and sinus congestion (Actifed or Sudafed). [NOTE: Do not use decongestants if you have high blood pressure.] Stay home until your fever has been gone for at least 24 hours (without the use of fever-reducing medications such as ibuprofen). Follow Up with your doctor or as directed by our staff if you are not improving over the next week. Note: If you are age 65 or older, or if you have chronic asthma or COPD, we recommend a pneumococcal vaccinationevery five years. All adults shouldreceive a yearly influenza vaccination every . Ask your doctor about this. Get Prompt Medical Attention if any of the following occur: Cough with lots of colored sputum (mucus) or blood in your sputum Chest pain, shortness of breath, wheezing, or difficulty breathing Severe headache, face, neck or ear pain New rash Fever of 100.4F (38C) oral or higher, not better with fever medication Confusion, behavior change or seizure Severe weakness or dizziness Clear Liquid Diet Clear liquids are any liquid that you can see through as well as those that are very easy to digest. This is used while the body is recovering from irritation or infection of the stomach or intestinal tract. It may also be used before special procedures or surgery. This diet is to be used no more than three days. You may include the following items. Adults Adults should drink a total of 23 quarts of liquid per day. It may be easier to drink small frequent servings rather than a few large ones. Liquids can include: Fruit juices.Strained orange juice or lemonade (no pulp), apple, grape and cranberry juice, clear fruit drinks, sports drinks Beverages.Sport drinks, sodas, mineral water (plain or flavored), tea, black coffee, liquid gelatin (add twice the recommended amount of water) Soups.Clear broth, consomm, bouillon Desserts.Plain gelatin, popsicles, fruit juice bars Children Over 2 years old The following liquids are acceptable for children over age 2: Fruit juices.Strained orange juice or lemonade (no pulp), apple, grape and cranberry juice, clear fruit drinks Beverages. Sports drinks, sodas, mineral water (plain or flavored), tea, liquid gelatin (add twice the recommended amount of water) Soups. Clear broth, consomm, bouillon Desserts. Plain gelatin, popsicles, fruit juice bars Children under 2 years old Oral rehydration fluids such are available at drug stores and most grocery stores without a prescription. Ondansetron Oral disintegrating tablet What is this medicine? ONDANSETRON (on FARHAT se isidra) is used to treat nausea and vomiting caused by chemotherapy. It is also used to prevent or treat nausea and vomiting after surgery. How should I use this medicine? These tablets are made to dissolve in the mouth. Do not try to push the tablet through the foil backing. With dry hands, peel away the foil backing and gently remove the tablet. Place the tablet in the mouth and allow it to dissolve, then swallow. While you may take these tablets with water, it is not necessary to do so. Talk to your case resolution specialist regarding the use of this medicine in children. Special care may be needed. What side effects may I notice from receiving this medicine? Side effects that you should report to your doctor or health acute care nurse as soon as possible: allergic reactions like skin rash, itching or hives, swelling of the face, lips, or tongue breathing problems dizziness fast or irregular heartbeat feeling faint or lightheaded, falls fever and chills swelling of the hands and feet tightness in the chest Side effects that usually do not require medical attention (report to your doctor or health acute care nurse if they continue or are bothersome): constipation or diarrhea headache What may interact with this medicine? Do not take this medicine with any of the following medications: -apomorphine -cisapride -dofetilide -dronedarone -pimozide -thioridazine -ziprasidone This medicine may also interact with the following medications: -carbamazepine -phenytoin -rifampicin -tramadol -other medicines that prolong the QT interval (cause an abnormal heart rhythm) What if I miss a dose? If you miss a dose, take it as soon as you can. If it is almost time for your next dose, take only that dose. Do not take double or extra doses. Where should I keep my medicine? Keep out of the reach of children. Store between 2 and 30 degrees C (36 and 86 degrees F). Throw away any unused medicine after the expiration date. What should I tell my health care provider before I take this medicine? They need to know if you have any of these conditions: heart disease history of irregular heartbeat liver disease low levels of magnesium or potassium in the blood an unusual or allergic reaction to ondansetron, granisetron, other medicines, foods, dyes, or preservatives or trying to get breast-feeding What should I watch for while using this medicine? Check with your doctor or health acute care nurse as soon as you can if you have any sign of an allergic reaction. You have been given the following additional information: , New Dx Influenza (Adult) Diet, Clear Liquid Ondansetron Oral disintegrating tablet Do not work for three days. (Electronically signed by Bar Maza DO 12/16/2016 12:30)
--- NOTE | 2016-12-16 12:30 | ED MAR SUMMARY ---
..... Medication Administration Record [facility] [address] [place] [address] Patient: YASMANY RADER Visit ID: [id number] 26y, F Weight: 62.5 kg Height/Length: 61 in BMI: 26 ALLERGIES: Sulfa Antibiotics Start 12:39 12/15/2016 Roseann Malagon,, Stop 13:47 12/15/2016 Roseann Malagon, Medication Administered: IV NS (SALINE), Dose: IV Fluids, Bolus: 1000 mL wide open, Dispensed: 1000 mL bag, Site: #1 right AC. Medication Ordered: IV NS : initial bolus 1000 mL (1000 mL/hr), then 1000 mL/hr for X2 (NOW). Given 12:39 12/15/2016 Roseann Malagon, Medication Administered: ZOFRAN [IVP] (ONDANSETRON HCL), Dose: 4 mg IVP over 1 minute(s), Site: #1 right AC. Medication Ordered: Zofran IV 4 mg (NOW). Given 12:40 12/15/2016 Roseann Malagon, Medication Administered: REGLAN [IVP] (METOCLOPRAMIDE HCL), Dose: 10 mg IVP over 2 minute(s), Site: #1 right AC. Medication Ordered: Reglan IV 10 mg (NOW).
--- NOTE | 2016-12-16 12:30 | ED MAR SUMMARY ---
..... Medication Administration Record [facility] [address] [place] [address] Patient: YASMANY RADER Visit ID: [id number] 26y, F Weight: 62.5 kg Height/Length: 61 in BMI: 26 ALLERGIES: Sulfa Antibiotics Start 12:39 12/15/2016 Roseann Malagon,, Stop 13:47 12/15/2016 Roseann Malagon, Medication Administered: IV NS (SALINE), Dose: IV Fluids, Bolus: 1000 mL wide open, Dispensed: 1000 mL bag, Site: #1 right AC. Medication Ordered: IV NS : initial bolus 1000 mL (1000 mL/hr), then 1000 mL/hr for X2 (NOW). Given 12:39 12/15/2016 Roseann Malagon, Medication Administered: ZOFRAN [IVP] (ONDANSETRON HCL), Dose: 4 mg IVP over 1 minute(s), Site: #1 right AC. Medication Ordered: Zofran IV 4 mg (NOW). Given 12:40 12/15/2016 oRseann Malagon, Medication Administered: REGLAN [IVP] (METOCLOPRAMIDE HCL), Dose: 10 mg IVP over 2 minute(s), Site: #1 right AC. Medication Ordered: Reglan IV 10 mg (NOW).
--- NOTE | 2016-12-16 12:30 | ED MED RECONCILIATION SUMMARY ---
Patient: YASMANY RADER Medication Reconciliation Report [facility] VisitID: [id number] [address] [place] [address] 26y, F Registration Date/Time: 12/15/2016 Weight: 62.5 kg Height/Length: 61 in. BMI: 26.0 ALLERGIES: Sulfa Antibiotics The patient's Home Medications are listed below: CONTINUE TAKING THE FOLLOWING MEDICATIONS: Tamiflu Oral Zofran Oral The source(s) of the original Home Medication information: Not obtained. The following Medications were given to the patient in the Emergency Department: IV NS IV Fluids bolus 1000 mL wide open, administered: 12/15/2016 12:39:00 PM Zofran [IVP] IVP 4 mg, administered: 12/15/2016 12:39:00 PM Reglan [IVP] IVP 10 mg, administered: 12/15/2016 12:40:00 PM The following Medications were prescribed to the patient: Zofran (orally disintegrating tablets) 4 mg: take 1-2 orally every 8 hours as needed for nausea and vomiting. Dispense fifteen (15). No refill. Substitution is permissible. -- Bar Maza DO
--- NOTE | 2016-12-16 12:30 | ED MED RECONCILIATION SUMMARY ---
Patient: YASMANY RADER Medication Reconciliation Report [facility] VisitID: [id number] [address] [place] [address] 26y, F Registration Date/Time: 12/15/2016 Weight: 62.5 kg Height/Length: 61 in. BMI: 26.0 ALLERGIES: Sulfa Antibiotics The patient's Home Medications are listed below: CONTINUE TAKING THE FOLLOWING MEDICATIONS: Tamiflu Oral Zofran Oral The source(s) of the original Home Medication information: Not obtained. The following Medications were given to the patient in the Emergency Department: IV NS IV Fluids bolus 1000 mL wide open, administered: 12/15/2016 12:39:00 PM Zofran [IVP] IVP 4 mg, administered: 12/15/2016 12:39:00 PM Reglan [IVP] IVP 10 mg, administered: 12/15/2016 12:40:00 PM The following Medications were prescribed to the patient: Zofran (orally disintegrating tablets) 4 mg: take 1-2 orally every 8 hours as needed for nausea and vomiting. Dispense fifteen (15). No refill. Substitution is permissible. -- Bar Maza DO
== END 2016-12-15 13:45 | disposition home or self-care (01) ==
LOC: ED SRH 11:29
DX: O99.511 Diseases of the respiratory system complicating pregnancy, first trimester (principal); J11.1 Influenza due to unidentified influenza virus with other respiratory manifestations; Z3A.11 11 weeks gestation of pregnancy
CPT/HCPCS: 90004; 90100; 90616; 91320; 91556; 92530; 92610; 92720; 92760; 92761; 92762; 92763; 92764; 92765; 92766; 92767; 93004; 93140; 94060; 95059

== ENCOUNTER 2017-02-09 12:01 | Outpatient (CLI) | payer OTHER ==
--- NOTE | 2017-02-09 13:48 | DIAGNOSTIC IMAGING REPORT ---
PROCEDURE: US OB DETAILED ANATOMIC INDICATION: ANATOMY TECHNIQUE: Myrick scale, color, and spectral Doppler images of the second trimester gravid uterus were obtained. COMPARISON: None. FINDINGS: A single living intrauterine is in vertex presentation. There is regular cardiac activity at a rate of 141 beats per minute. The placenta is posterior and away from the internal cervical os. The cervix is closed measuring approximately 5.1 cm in length. The amniotic fluid volume is subjectively normal. Biparietal diameter 3.9 cm, 17 weeks 6 days Head circumference 14.9 cm, 18 weeks 0 days Abdominal circumference 13.3 cm, 18 weeks 6 days Femur length 2.7 cm, 18 weeks 3 days Head to abdominal circumference ratio and femur length to abdominal circumference ratios are normal. Estimated weight 244 g plus/minus 37 g Composite gestational age 18 weeks 2 days There was visualization of a number of normal structures including the intracranial contents, facial features, nuchal region, spine, four-chamber heart and outflow tracts to the extent that could be visualized, diaphragm, fluid-filled stomach, kidneys, abdomen, urinary bladder, upper and lower extremities, and genitals. A three-vessel umbilical cord, normal and placental cord insertion sites were seen. IMPRESSION: 1. Single living intrauterine with a composite gestational age of 18 weeks 2 days and estimated due date of 07/11/2017. 2. Symmetric growth and normal anatomy.
== END 2017-02-09 23:00 ==
LOC: US SRH 12:01
DX: Z34.92 Encounter for supervision of normal pregnancy, unspecified, second trimester (principal); Z3A.18 18 weeks gestation of pregnancy

== ENCOUNTER 2017-03-26 11:06 | Outpatient (CLI) | payer OTHER | END 2017-03-26 23:00 | LOC: LAB SRH 11:06 | DX: Z34.82 Encounter for supervision of other normal pregnancy, second trimester (principal) | CPT/HCPCS: 90039; 90074; 91162; 91163 ==

== ENCOUNTER 2017-04-01 13:05 | Emergency (ER) | payer OTHER ==
--- NOTE | 2017-04-01 15:40 | ED ORDER SUMMARY ---
..... Patient: YASMANY RADER OrderSheet [facility] VisitID: [id number] [place] [address] 26y, F Registration Date/Time: 04/01/2017 ORDER SHEET Weight: 69.8 kg (stated) Allergies: Sulfa Antibiotics GENERAL ORDERS: CBC w Diff Urgent (13:26 04/01/2017 EKoroleva P.A.-C) (Ack 13:36 LNations ER Tech1) (14:44 DMaziarka R.N.) CMP Urgent (13:26 04/01/2017 EKoroleva P.A.-C) (Ack 13:36 LNations ER Tech1) (14:44 DMaziarka R.N.) UA-Culture if indicated Urgent (13:04/01/2017 EKoroleva P.A.-C) (Ack 13:36 LNations ER Tech1) (14:44 DMaziarka R.N.) Lipase Urgent (13:26 04/01/2017 EKoroleva P.A.-C) (Ack 13:36 LNations ER Tech1) (14:44 DMaziarka R.N.) EKG - ER Stat (13:31 04/01/2017 EKoroleva P.A.-C) (Ack 13:36 LNations ER Tech1) (13:41 DMaziarka R.N.) Vitals - Orthostatic (14:38 04/01/2017 EKoroleva P.A.-C) (Ack 14:41 IJurca ER Tech1) (14:44 DMaziarka R.N.) Vitals (14:38 04/01/2017 EKoroleva P.A.-C) (Ack 14:41 IJurca ER Tech1) (14:44 DMaziarka R.N.) Culture, Urine (Urine, Clean Catch) Urgent (15:17 04/01/2017 EKoroleva P.A.-C) (Ack 15:17 LNations ER Tech1) (15:18 LNations ER Tech1) MEDICATION ORDERS: IV FLUIDS: IV NS : initial bolus 1000 mL (1000 mL/hr), then 1000 mL/hr for X1 (NOW); Honorio (13:25 04/01/2017 Richar Damian) (13:48 Rik Washburn) ORDER SHEET NOTES: [Electronically signed by Phyllis Casey P.A.-C (15:42 04/01/2017)] [Electronically signed by Amber Manning R.N. (16:30 04/01/2017)] [Electronically locked/signed by Amber Manning R.N. (16:30 04/01/2017)]
--- NOTE | 2017-04-01 15:40 | ED ORDER SUMMARY ---
..... Patient: YASMANY RADER OrderSheet [facility] VisitID: [id number] [place] [address] 26y, F Registration Date/Time: 04/01/2017 ORDER SHEET Weight: 69.8 kg (stated) Allergies: Sulfa Antibiotics GENERAL ORDERS: CBC w Diff Urgent (13:26 04/01/2017 EKoroleva P.A.-C) (Ack 13:36 LNations ER Tech1) (14:44 DMaziarka R.N.) CMP Urgent (13:26 04/01/2017 EKoroleva P.A.-C) (Ack 13:36 LNations ER Tech1) (14:44 DMaziarka R.N.) UA-Culture if indicated Urgent (13:04/01/2017 EKoroleva P.A.-C) (Ack 13:36 LNations ER Tech1) (14:44 DMaziarka R.N.) Lipase Urgent (13:26 04/01/2017 EKoroleva P.A.-C) (Ack 13:36 LNations ER Tech1) (14:44 DMaziarka R.N.) EKG - ER Stat (13:31 04/01/2017 EKoroleva P.A.-C) (Ack 13:36 LNations ER Tech1) (13:41 DMaziarka R.N.) Vitals - Orthostatic (14:38 04/01/2017 EKoroleva P.A.-C) (Ack 14:41 IJurca ER Tech1) (14:44 DMaziarka R.N.) Vitals (14:38 04/01/2017 EKoroleva P.A.-C) (Ack 14:41 IJurca ER Tech1) (14:44 DMaziarka R.N.) Culture, Urine (Urine, Clean Catch) Urgent (15:17 04/01/2017 EKoroleva P.A.-C) (Ack 15:17 LNations ER Tech1) (15:18 LNations ER Tech1) MEDICATION ORDERS: IV FLUIDS: IV NS : initial bolus 1000 mL (1000 mL/hr), then 1000 mL/hr for X1 (NOW); Honorio (13:25 04/01/2017 Richar Damian) (13:48 Rik Washburn) ORDER SHEET NOTES: [Electronically signed by Phyllis Casey P.A.-C (15:42 04/01/2017)] [Electronically signed by Amber Manning R.N. (16:30 04/01/2017)] [Electronically locked/signed by Amber Manning R.N. (16:30 04/01/2017)]
--- NOTE | 2017-04-01 15:40 | ED NURSING NOTES ---
Clinical Report - Nurses [facility] [address] [place] [address] 04/01/2017 13:07 Patient: YASMANY RADER TRIAGE Triage time 13:12. Acuity: LEVEL 4. Chief Complaint: DIZZINESS, WEAKNESS and LIGHT HEADED and (and feels extra tired, more than usual). Alert. --13:17 Bianca Pillai R.N. 13:12 04/01/17. BP: 115/78. HR: 103. RR: 18. O2 saturation: 96%. Temp: 98.1 F. Pain level now: 01/09. --13:17 Bianca Pillai R.N. Weight: 69.8 kg stated. Height/Length: 61 inches Per Patient. BMI: 29.1. --13:16 Bianca Pillai R.N. Medications None. --13:17 Binaca Pillai R.N. Allergies Sulfa Antibiotics. --13:17 Bianca Pillai R.N. History Arrived by private vehicle. Historian: patient. Primary physician (INDIA Barksdale). ( Pt feels she overdid it at her work yesterday, hasn't felt well since). This started yesterday. PAST MEDICAL HX: 2. Para 1. Confirmed : 26 weeks gestation. In 2nd trimester. SOCIAL HX: Former smoker, end date 2016. NUTRITIONAL RISK ASSESSMENT: The nutritional risk assessment revealed no deficiencies. FUNCTIONAL ASSESSMENT: Functional assessment: no impairments noted. --13:17 Bianca Pillai R.N. PROBLEMS: Heart Disease. Influenza. Drug Rash. Hives. Ureterolithiasis. UTI - Urinary Tract Infection. Nausea. Cough. Bronchitis. Vaginitis. Viral Disease. --13:17 Bianca Pillai R.N. ADDITIONAL SURGERIES: no known surgeries. Interventions ID band on patient. To room. --13:17 Bianca Pillai R.N. PHYSICAL ASSESSMENT 13:18 04/01/17. GENERAL / NEURO / PSYCH: Oriented X 4. Alert. --13:18 Bianca Pillai R.N. NURSING PROGRESS NOTES 13:18 04/01/17. Patient identifiers checked. Call light placed in reach. Bed placed in lowest position. Patient ready for evaluation- chart flagged. --13:18 Bianca Pillai R.N. 13:20 04/01/17. ( FHT's left side, rate 150). --13:20 Bianca Pillai R.N. 13:47 04/01/2017 Site #1 started via IV in the right forearm with an 18g angiocath, with aseptic technique; one attempt. Saline lock flushed with 10 mL saline. --13:47 Amber Manning R.N. 13:48 04/01/2017 Started bag #1 1000 mL IV Fluids IV NS (Saline); bolus of 1000 mL over 30 minute(s) via site #1 via IV pump. Allergies verified and confirmed 5 rights. IV patency established. IV site checked: no pain, redness, or swelling. IV flushed thoroughly pre- and post-medication administration. --13:48 Amber Manning R.N. EKG time: (1341). EKG was ordered, performed by a tech and shown to the ED physician. --13:58 Emma Winn, GLENNA Tech1 14:40 04/01/2017 IV Fluids IV NS Bag Change: bag #1 completed. Total amount infused: 1000. STARTED bag #2 (1000 mL) at 1000 mL/hr via IV pump. Confirmed 5 rights. IV patency established. IV site checked: no pain, redness, or swelling. IV flushed thoroughly. --14:47 Amber Manning R.N. 14:45 04/01/2017 IV Fluids IV NS Response: pain is improving. Symptoms have improved the patient feels better. --14:45 Amber Manning R.N. 14:46 04/01/2017 IV Fluids IV NS Discontinued: bag #1 completed. Total amount infused: 1000 mL. IV patency established. IV site checked: no pain, redness, or swelling. IV flushed thoroughly. --14:46 Amber Manning R.N. 15:08 04/01/17. BP: 102/65 taken while lying. HR: 78. RR: 16. O2 saturation: 100%. Additional comments: Sitting 98/62 HR 78 Standing 103/60 HR 80. --15:11 Amber Manning R.N. 16:01 04/01/2017 Site #1 removed upon discharge. Bandaid applied. --16:01 Amber Manning R.N. DISPOSITION / DISCHARGE Departure time: 16:01. Condition at departure: improved. No learning barriers present. Discharge instructions provided and reviewed with the patient. The patient was discharged home. She left the Emergency Department ambulatory and via private vehicle. Patient driving. --16:01 Amber Manning R.N. 16:00 04/01/17. BP: 98/68. HR: 84. RR: 16. O2 saturation: 100%. Pain level now 0/10. --16:01 Amber Manning R.N. Departure time: 16:01. --16:01 Amber Manning R.N. Locked/Released at 04/01/2017 16:30 by Amber Manning R.N.
--- NOTE | 2017-04-01 15:40 | ED CLINICAL REPORT ---
Clinical Report - Physicians/Mid Levels [facility] [address] [place] [address] 04/01/2017 13:07 Patient: YASMANY RADER Time Seen: 13:28 Apr 01 2017. Arrived- By private vehicle. Historian- patient. HISTORY OF PRESENT ILLNESS Chief Complaint: weakness/ dizzy. This started just prior to arrival and is still present. No loss of appetite. 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 Patient denies any abdominal pain. Denies any sharp stabbing pains. Patient denies any shortness of breath, lower extremity or upper extremity swelling. Patient is a , 26 week female with no complications to the state commonly has mild emesis after brushing her teeth with a gag reflex, and had no conversations in her first vaginal delivery term.). REVIEW OF SYSTEMS No fever, cough, difficulty breathing, vomiting or diarrhea. No chills, headache or blackouts. All systems otherwise negative, except as recorded above. PAST HISTORY Problems: Heart Disease. Influenza. . Drug Rash. Hives. Ureterolithiasis. UTI - Urinary Tract Infection. Substance Abuse. Nausea. Cough. Bronchitis. OB History. Vaginitis. Viral Disease. Immunizations. LNMP - Last Normal Menstrual Period. Additional Surgeries: no known surgeries. Medications: None. Allergies: Sulfa Antibiotics. SOCIAL HISTORY Former smoker. No alcohol use or drug use. ADDITIONAL NOTES The nursing notes have been reviewed. PHYSICAL EXAM Vital Signs: 04/01/2017 13:12 BP: 115/78. HR: 103. RR: 18. O2 saturation: 96%. Temp: 98.1 F. Pain level now: 3/10. Appearance: Alert. No acute distress. Eyes: Eyes normal inspection. ENT: Ears normal. Neck: Normal inspection. Neck supple. CVS: Normal heart rate and rhythm. Heart sounds normal. Respiratory: No respiratory distress. Breath sounds normal. Skin: Skin warm. Normal skin color. Neuro: Oriented X 3. LABS, X-RAYS, AND EKG EKG: EKG time: (04/01/17). No acute process. No acute ischemia. Laboratory Tests: UA-Culture if indicated: (JONATHON: 04/01/2017 13:50) ( [facility] [place]/01[place] 14:14) Final results Test Result Flag Units (Reference) URINE COLOR YELLOW URINE APPEARANCE CLEAR URINE GLUCOSE NEGATIVE (NEGATIVE) URINE BILIRUBIN NEGATIVE (NEGATIVE) URINE KETONE NEGATIVE (NEGATIVE) URINE SPECIFIC GRAVITY 1.025 (1.010-1.030) URINE PH 6.5 (5.0-8.0) URINE PROTEIN NEGATIVE (NEGATIVE) URINE UROBILINOGEN 0.2 EU/dL (0.2-1.0) URINE NITRITE NEGATIVE (NEGATIVE) URINE BLOOD NEGATIVE (NEGATIVE) URINE LEUK ESTERASE NEGATIVE (NEGATIVE) URINE RBC 0-1 rbc/hpf (0-1) URINE WBC 0-1 wbc/hpf (0-1) URINE EPITHELIAL CELLS 0-1 EPI/hpf (0-5) URINE BACTERIA FEW (1+) (NONE SEEN) URINE COMMENT CULT NOT INDICATED URINE CULTURES ARE SET-UP BASED ON THE FOLLOWING CRITERIA:POSITIVE NITRITEPOSITIVE LEUKOCYTE ESTERASEGREATER THAN 10 WHITE BLOOD CELLSMODERATE (2+) OR GREATER BACTERIA CBC w Diff: (JONATHON: 04/01/2017 13:57) ( MsgRcvd 04/01/2017 14:12) Final results Test Result Flag Units (Reference) WHITE BLOOD COUNT 13.6 H K/uL (4.5-11.5) RED BLOOD COUNT 3.91 L M/uL (4.00-5.20) HEMOGLOBIN 12.1 gm/dL (12.0-16.0) HEMATOCRIT 35.4 L % (36.0-46.0) MEAN CELL VOLUME 91 fL (80-100) MEAN CORPUSCULAR HGB 31 pg (26-34) MEAN CORPUSCULAR HGB CONC 34 g/dL (31-37) RED CELL DISTRIBUTION WIDTH 13.0 % (11.6-14.8) PLATELET COUNT 252 K/uL (150-400) NEUTROPHIL % 81.5 H % (50-75) LYMPH % 12.5 L % (25-40) MONO % 4.6 % (3-14) EOSINOPHIL % 1.2 % (0-4) BASOPHIL % 0.2 % (0-2) CMP: (JONATHON: 04/01/2017 13:57) ( MsgRcvd 04/01/2017 14:20) Final results Test Result Flag Units (Reference) GLUCOSE 98 mg/dL (70-110) BUN 9 mg/dL (7-18) CREATININE 0.5 L mg/dL (0.6-1.3) Estimated GFR >60 mL/min Estimated GFR- >60 mL/min Note: Persistent reduction over 3 months in eGFR<60 mL/min/1.73 m2 defines CKD. Patients with eGFR values>=60 mL/min/1.73 m2 may also have CKD if evidence ofpersistent proteinuria. Additional information may be foundat www.kidney.org. SODIUM 142 mmol/L (136-145) POTASSIUM 3.6 mmol/L (3.5-5.1) CHLORIDE 106 mmol/L (98-107) CARBON DIOXIDE 22 mmol/L (21-32) CALCIUM 8.7 mg/dL (8.5-10.1) TOTAL PROTEIN 7.1 g/dL (6.4-8.2) ALBUMIN 3.0 L g/dL (3.3-5.0) BILIRUBIN, TOTAL 0.4 mg/dL (0.0-1.0) ALKALINE PHOSPHATASE 98 U/L (46-116) AST (SGOT) 12 L U/L (15-37) ALT (SGPT) 23 U/L (12-78) LIPASE 158 U/L (73-393) . PROGRESS AND PROCEDURES Course of Care: 13:20 04/01/17. ( FHT's left side, rate 150). --13:20 here in the emergency Department patient with improvement of symptoms, vitals are unremarkable, no signs of hypertension. Small amount of dehydration. Small minimal amount of bacteria urine, with no leukocyte Estrace or nitrate, patient with urgency or frequency, and this will pend for urine culture. 04/01/2017 15:08 BP: 102/65. HR: 78. RR: 16. O2 saturation: 100%. Patient is stable. Symptoms better. Patient/family counseled. Disposition: Discharged. CLINICAL IMPRESSION Second trimester intrauterine . Mild dehydration INSTRUCTIONS Do not work today. Warnings: Further evaluation is necessary. Follow-up: Follow up with your doctor in three days. (Electronically signed by Phyllis Casey P.A.-C 04/01/2017 15:42)
--- NOTE | 2017-04-01 15:40 | ED CLINICAL REPORT ---
Clinical Report - Physicians/Mid Levels [facility] [address] [place] [address] 04/01/2017 13:07 Patient: YASMANY RADER Time Seen: 13:28 Apr 01 2017. Arrived- By private vehicle. Historian- patient. HISTORY OF PRESENT ILLNESS Chief Complaint: weakness/ dizzy. This started just prior to arrival and is still present. No loss of appetite. 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 Patient denies any abdominal pain. Denies any sharp stabbing pains. Patient denies any shortness of breath, lower extremity or upper extremity swelling. Patient is a , 26 week female with no complications to the state commonly has mild emesis after brushing her teeth with a gag reflex, and had no conversations in her first vaginal delivery term.). REVIEW OF SYSTEMS No fever, cough, difficulty breathing, vomiting or diarrhea. No chills, headache or blackouts. All systems otherwise negative, except as recorded above. PAST HISTORY Problems: Heart Disease. Influenza. . Drug Rash. Hives. Ureterolithiasis. UTI - Urinary Tract Infection. Substance Abuse. Nausea. Cough. Bronchitis. OB History. Vaginitis. Viral Disease. Immunizations. LNMP - Last Normal Menstrual Period. Additional Surgeries: no known surgeries. Medications: None. Allergies: Sulfa Antibiotics. SOCIAL HISTORY Former smoker. No alcohol use or drug use. ADDITIONAL NOTES The nursing notes have been reviewed. PHYSICAL EXAM Vital Signs: 04/01/2017 13:12 BP: 115/78. HR: 103. RR: 18. O2 saturation: 96%. Temp: 98.1 F. Pain level now: 3/10. Appearance: Alert. No acute distress. Eyes: Eyes normal inspection. ENT: Ears normal. Neck: Normal inspection. Neck supple. CVS: Normal heart rate and rhythm. Heart sounds normal. Respiratory: No respiratory distress. Breath sounds normal. Skin: Skin warm. Normal skin color. Neuro: Oriented X 3. LABS, X-RAYS, AND EKG EKG: EKG time: (04/01/17). No acute process. No acute ischemia. Laboratory Tests: UA-Culture if indicated: (JONATHON: 04/01/2017 13:50) ( [facility] [place] 14:14) Final results Test Result Flag Units (Reference) URINE COLOR YELLOW URINE APPEARANCE CLEAR URINE GLUCOSE NEGATIVE (NEGATIVE) URINE BILIRUBIN NEGATIVE (NEGATIVE) URINE KETONE NEGATIVE (NEGATIVE) URINE SPECIFIC GRAVITY 1.025 (1.010-1.030) URINE PH 6.5 (5.0-8.0) URINE PROTEIN NEGATIVE (NEGATIVE) URINE UROBILINOGEN 0.2 EU/dL (0.2-1.0) URINE NITRITE NEGATIVE (NEGATIVE) URINE BLOOD NEGATIVE (NEGATIVE) URINE LEUK ESTERASE NEGATIVE (NEGATIVE) URINE RBC 0-1 rbc/hpf (0-1) URINE WBC 0-1 wbc/hpf (0-1) URINE EPITHELIAL CELLS 0-1 EPI/hpf (0-5) URINE BACTERIA FEW (1+) (NONE SEEN) URINE COMMENT CULT NOT INDICATED URINE CULTURES ARE SET-UP BASED ON THE FOLLOWING CRITERIA:POSITIVE NITRITEPOSITIVE LEUKOCYTE ESTERASEGREATER THAN 10 WHITE BLOOD CELLSMODERATE (2+) OR GREATER BACTERIA CBC w Diff: (JONATHON: 04/01/2017 13:57) ( MsgRcvd 04/01/2017 14:12) Final results Test Result Flag Units (Reference) WHITE BLOOD COUNT 13.6 H K/uL (4.5-11.5) RED BLOOD COUNT 3.91 L M/uL (4.00-5.20) HEMOGLOBIN 12.1 gm/dL (12.0-16.0) HEMATOCRIT 35.4 L % (36.0-46.0) MEAN CELL VOLUME 91 fL (80-100) MEAN CORPUSCULAR HGB 31 pg (26-34) MEAN CORPUSCULAR HGB CONC 34 g/dL (31-37) RED CELL DISTRIBUTION WIDTH 13.0 % (11.6-14.8) PLATELET COUNT 252 K/uL (150-400) NEUTROPHIL % 81.5 H % (50-75) LYMPH % 12.5 L % (25-40) MONO % 4.6 % (3-14) EOSINOPHIL % 1.2 % (0-4) BASOPHIL % 0.2 % (0-2) CMP: (JONATHON: 04/01/2017 13:57) ( MsgRcvd 04/01/2017 14:20) Final results Test Result Flag Units (Reference) GLUCOSE 98 mg/dL (70-110) BUN 9 mg/dL (7-18) CREATININE 0.5 L mg/dL (0.6-1.3) Estimated GFR >60 mL/min Estimated GFR- >60 mL/min Note: Persistent reduction over 3 months in eGFR<60 mL/min/1.73 m2 defines CKD. Patients with eGFR values>=60 mL/min/1.73 m2 may also have CKD if evidence ofpersistent proteinuria. Additional information may be foundat www.kidney.org. SODIUM 142 mmol/L (136-145) POTASSIUM 3.6 mmol/L (3.5-5.1) CHLORIDE 106 mmol/L (98-107) CARBON DIOXIDE 22 mmol/L (21-32) CALCIUM 8.7 mg/dL (8.5-10.1) TOTAL PROTEIN 7.1 g/dL (6.4-8.2) ALBUMIN 3.0 L g/dL (3.3-5.0) BILIRUBIN, TOTAL 0.4 mg/dL (0.0-1.0) ALKALINE PHOSPHATASE 98 U/L (46-116) AST (SGOT) 12 L U/L (15-37) ALT (SGPT) 23 U/L (12-78) LIPASE 158 U/L (73-393) . PROGRESS AND PROCEDURES Course of Care: 13:20 04/01/17. ( FHT's left side, rate 150). --13:20 here in the emergency Department patient with improvement of symptoms, vitals are unremarkable, no signs of hypertension. Small amount of dehydration. Small minimal amount of bacteria urine, with no leukocyte Estrace or nitrate, patient with urgency or frequency, and this will pend for urine culture. 04/01/2017 15:08 BP: 102/65. HR: 78. RR: 16. O2 saturation: 100%. Patient is stable. Symptoms better. Patient/family counseled. Disposition: Discharged. CLINICAL IMPRESSION Second trimester intrauterine . Mild dehydration INSTRUCTIONS Do not work today. Warnings: Further evaluation is necessary. Follow-up: Follow up with your doctor in three days. (Electronically signed by Phyllis Casey P.A.-C 04/01/2017 15:42)
--- NOTE | 2017-04-01 16:30 | ED DISCHARGE INSTRUCTIONS ---
Patient: YASMANY RADER General Instructions [facility] VisitID: [id number] [place] [address] 26y, F Registration Date/Time: 04/01/2017 Second trimester intrauterine . Mild dehydration INSTRUCTIONS Do not work today. Warnings: Further evaluation is necessary. Follow-up: Follow up with your doctor in three days. ADDITIONAL INFORMATION Your exam today shows that you are . During , it is normal to develop tender swollen breasts, frequent urination and mild vaginal discharge. During the first three months, nausea is common. Guidelines For A Healthy : To ensure that your baby is born healthy there are certain things that you can do: When you feel tired, you should REST. This is especially true in the later months of . Your body needs more FLUIDS than you may be used to: You should drink 8-10 glasses of juice, milk or water. Eat well-balanced MEALS at regular intervals to supply your body with enough protein. You can expect a total weight gain of about 30 pounds during the . Do not try to diet or lose weight while you are . Because of the extra nutritional needs during , take one VITAMIN daily. Do not take any other MEDICINE during your (prescribed or [id number]) unless your doctor specifically recommends this. Many drugs can have harmful effects on the growing baby. If NAUSEA or VOMITING become a problem, avoid greasy and fried foods. Eat several smaller meals throughout the day rather than three large meals. If you SMOKE, you must stop. The nicotine you breathe in goes right to the baby. Stay away from ALCOHOL, even in moderate amounts. Daily drinking will harm your baby and can cause permanent brain damage. RECREATIONAL DRUGS are harmful, especially cocaine, crack, and heroin. Marijuana should also be avoided. If you were using recreational drugs or prescribed medicine when you found out that you were , talk to your doctor about possible effects on the fetus. Follow Up: Call to arrange for care. This can be provided by your family doctor, an critical care physician ( specialist) or a primary care clinic. Get Prompt Medical Attention if any of the following occur: Vaginal bleeding Moderate or severe abdominal or back pain Excessive vomiting, unable to keep any fluids down for six hours Burning with urination Headache, dizziness or rapid weight gain Dehydration (Adult) Dehydration occurs when your body loses too much fluid. This may be the result of vomiting a lot or from diarrhea,sweating a lot, or a high fever. It may also happen if you dont drink enough fluid when youre sick. Misuse of diuretics (water pills) can also be a cause. Symptoms include thirst and feeling dizzy, weak, fatigued, or very drowsy. The diet described below is usually enough to treat most cases. Sometimes you may needmedicine. Home Care Follow these guidelines for home care: Drink at least 12 8-ounce glasses of fluid every day to overcome the dehydration. Fluid may include water; orange juice; lemonade; apple, grape, and cranberry juice; clear fruit drinks; electrolyte replacement and sports drinks; and teas and coffee without caffeine. If you have been diagnosed with a kidney disease, ask your doctor how much and what types of fluids you should drink to prevent dehydration. If you have kidney disease, drinking too much fluid can cause it build up in the your body and be dangerous to your health. If you have fever, muscle aching, or headache from a viral syndrome, you may useacetaminophen or ibuprofen, unless another medicine was prescribed for this.If you have chronic liver or kidney disease or ever had a stomach ulcer or GI bleeding, talk with your doctor before using these medicines. Don't take aspirin if you are younger than 18 and are ill with a fever.Aspirin raises the chance forsevere liver injury. Follow-up care Follow up with your health care provider if you don't get better in the next 24 to 48 hours. When to seek medical care Get prompt medical attention if any of theseoccur: Continued vomiting (cant keep liquids down) Frequent diarrhea (more than 5 times a day); blood (red or black color) or mucus in diarrhea Blood in vomit or stool Swollen abdomen or increasing abdominal pain Weakness, dizziness, or fainting Unusually drowsy or confused Reduced urine output or extreme thirst Fever of 100.4 F (38 C) oral or higher that does not get better with fever medication You have been given the following additional information: , New Dx Dehydration (Adult) Do not work today. (Electronically signed by Phyllis Casey P.A.-C 04/01/2017 15:42)
--- NOTE | 2017-04-01 16:30 | ED MED RECONCILIATION SUMMARY ---
Patient: YASMANY RADER Medication Reconciliation Report [facility] VisitID: [id number] [address] [place] [address] 26y, F Registration Date/Time: 04/01/2017 Weight: 69.8 kg Height/Length: 61 in. BMI: 29.1 ALLERGIES: Sulfa Antibiotics The patient's Home Medications are listed below: NONE. The source(s) of the original Home Medication information: Not obtained. The following Medications were given to the patient in the Emergency Department: IV NS IV Fluids bolus 1000 mL over 30 minute(s), administered: 04/01/2017 1:48:00 PM The following Medications were prescribed to the patient: None.
--- NOTE | 2017-04-01 16:30 | ED MAR SUMMARY ---
..... Medication Administration Record [facility] [address] [place] [address] Patient: YASMANY RADER Visit ID: [id number] 26y, F Weight: 69.8 kg Height/Length: 61 in BMI: 29.1 ALLERGIES: Sulfa Antibiotics Start 13:48 04/01/2017 Amber Manning REileen, Stop 14:46 04/01/2017 Amber Manning R.N. Medication Administered: IV NS (SALINE), Dose: IV Fluids, Bolus: 1000 mL over 30 minute(s), Dispensed: 1000 mL bag, Site: #1 right forearm. Medication Ordered: IV NS : initial bolus 1000 mL (1000 mL/hr), then 1000 mL/hr for X1 (NOW); Honorio.
--- NOTE | 2017-04-01 16:30 | ED MED RECONCILIATION SUMMARY ---
Patient: YASMANY RADER Medication Reconciliation Report [facility] VisitID: [id number] [address] [place] [address] 26y, F Registration Date/Time: 04/01/2017 Weight: 69.8 kg Height/Length: 61 in. BMI: 29.1 ALLERGIES: Sulfa Antibiotics The patient's Home Medications are listed below: NONE. The source(s) of the original Home Medication information: Not obtained. The following Medications were given to the patient in the Emergency Department: IV NS IV Fluids bolus 1000 mL over 30 minute(s), administered: 04/01/2017 1:48:00 PM The following Medications were prescribed to the patient: None.
--- NOTE | 2017-04-01 16:30 | ED MAR SUMMARY ---
..... Medication Administration Record [facility] [address] [place] [address] Patient: YASMANY RADER Visit ID: [id number] 26y, F Weight: 69.8 kg Height/Length: 61 in BMI: 29.1 ALLERGIES: Sulfa Antibiotics Start 13:48 04/01/2017 Amber Manning REileen, Stop 14:46 04/01/2017 Amber Manning R.N. Medication Administered: IV NS (SALINE), Dose: IV Fluids, Bolus: 1000 mL over 30 minute(s), Dispensed: 1000 mL bag, Site: #1 right forearm. Medication Ordered: IV NS : initial bolus 1000 mL (1000 mL/hr), then 1000 mL/hr for X1 (NOW); Honorio.
== END 2017-04-01 16:01 | disposition home or self-care (01) ==
LOC: ED SRH 13:05
DX: O99.282 Endocrine, nutritional and metabolic diseases complicating pregnancy, second trimester (principal); Z3A.26 26 weeks gestation of pregnancy; Z88.2 Allergy status to sulfonamides; Z87.891 Personal history of nicotine dependence
CPT/HCPCS: 90004; 90074; 90100; 90469; 92235; 95059